=== PATIENT | female | born 1995 | race Caucasian/White ===

== ENCOUNTER 2021-11-05 15:58 | Emergency (ER) | payer MEDICAID, SELFPAY ==
[2021-11-05 16:21] VITALS: BP 113/73; PULSE 97; RESP 18; TEMP 36.7; O2SAT 100; BMI 39.1
--- NOTE | 2021-11-05 16:32 | ED.GENADULT ---
HPI - General Adult General Chief complaint: General Medical Stated complaint: ?Tonsilitis Time Seen by Provider: 11/05/21 16:32 Source: patient Mode of arrival: ambulatory Limitations: no limitations History of Present Illness HPI narrative: 26-year-old female with no known medical history presents to the emergency department with a sore throat, x2 days progressively worsening. Patient tells me she has not been able to drink much due to her progressively worsening sore throat. She tells me it stings and hurts to swallow. She denies fevers, chills, nausea, vomiting, chest pain, shortness of breath, abdominal pain, rhinorrhea, ear pain Onset (ago): day(s) (2) Location: mouth (throat ) Radiation: non-radiation Severity: severe Severity scale (1-10): 10 Quality: burning and other ( stinging ) Pain Consistency: constant Relieving factors: none Exacerbating factors: eating Associated symptoms: denies other symptoms Treatments prior to arrival: none Related Data Previous Rx's Medication Instructions Recorded amoxicillin 500 mg capsule 500 mg PO BID 10 Days #20 cap 11/05/21 prednisone 20 mg tablet 40 mg PO DAILY 5 Days #10 tab 11/05/21 Allergies Allergy/AdvReac Type Severity Reaction Status Date / Time No Known Allergies Allergy Unverified 08/08/20 17:23 Review of Systems Review of Systems: Constitutional : No Weight loss, No Fever, No Chills, No Fatigue, No Malaise ENT/Mouth : + sore throat, No Rhinorrhea Eyes: No Eye Pain, No Swelling, No Redness Cardiovascular : No Chest Pain, No SOB, No Dyspnea on Exertion, No Orthopnea, No Edema, No Palpitations Respiratory : No Cough, No Sputum, No Wheezing Gastrointestinal : No Nausea, No Vomiting, No Diarrhea, No Constipation, No abdominal Pain, No Hematochezia, No Melena Genitourinary : No Dysuria, No Urinary Frequency, No Hematuria, Musculoskeletal : No joint pain, No Myalgias, No Joint Swelling Skin : No Skin Lesions, No rash Neuro : No Weakness, No Numbness, No Dizziness, No Headache Psych : No Anxiety/Panic, No Depression All other systems reviewed and are negative Yes all other systems are reviewed and are negative PMFSH Past Medical History Attestation statement: The following information was validated with the patient. Source: old records reviewed and nursing notes reviewed Social History Social History Advance Directives: No Advance Directives Information Provided: No Physical Exam Vital Signs: Vital Signs: Last Vital Signs Temp 98.1 F 11/05/21 16:21 Pulse 97 11/05/21 16:21 Resp 18 11/05/21 16:21 BP 113/73 11/05/21 16:21 Pulse Ox 100 11/05/21 16:21 BMI result Body Mass Index 39.1 VSS Appearance: Alert.? Oriented X3.? No acute distress.? Head: Normocephalic, atraumatic, no step-offs or deformities Eyes: Pupils equal, round and reactive to light.? ENT: + bilateral tonsils erythematous, edematous with white patchy exudates. Uvula midline. No peritonsillar abscess. Halitosis is noted. No drooling, patient controlling secretions well. No lymphadenopathy. Neck: Normal inspection.? Neck supple.? CVS: Normal heart rate and rhythm.? Pulses normal.? Respiratory: No respiratory distress.? Breath sounds normal.? Abdomen: Soft and nontender.? Skin: Skin warm and dry.? Normal skin color.? Normal skin turgor.? Extremities: No lower extremity edema.? No calf ttp. 5/5 strength to bilateral upper and lower extremities Back: No midline tenderness, no C-spine tenderness, full range of motion, no CVA tenderness bilaterally Neuro: Oriented X 3.? No motor deficit.? No sensory deficit. Course Reevaluation(s) Reevaluation #1: Strep throat test negative. I will still treat for strep throat unless mono comes back positive. Then I will tell patient to not take antibiotics that were sent to her pharmacy. I have sent amoxicillin to the pharmacy, if any thing changes I will call the patient. I plan at this time is to treat this as bacterial pharyngitis unless mono comes back positive. Patient is safe for discharge home. Time: 16:46 Medical Decision Making [facility] Narrative Medical decision making narrative: [id number] This is a 26-year-old female no known medical history presents to the emergency department with 2 days of progressively worsening sore throat. Patient denies upper respiratory symptoms. Denies fevers and chills. Upon physical examination bilateral tonsils erythematous, edematous with white patchy exudates. Uvula midline. No peritonsillar abscess. Halitosis is noted. No drooling, patient controlling secretions well. No lymphadenopathy. Physical examination consistent with strep pharyngitis. Patient denies fevers and chills unlikely that this is mono however Monospot will be done. A strep test will also be done. Lab Data Labs: Lab Results 11/05/21 Range/Units 16:25 S. pyogenes GrpA CONNIE Negative (Negative) Critical Care Time Critical Care Time Critical Care Time: No Discharge Plan Discharge Clinical Impression: Pharyngitis Patient Disposition: Home, Self-Care Instructions: Pharyngitis (ED) Additional Instructions: Take your medications as prescribed. If you were prescribed antibiotics today, it is important that you take your medication to their entirety, do not skip any doses, do not finish them early. Drink plenty of fluids Alternate ibuprofen every 6 hours and Tylenol every 4. [place] test pending if positive you will not need antibiotics. If negative, take your antibiotics as prescribed. Follow-up with your primary care provider this week. Return to the emergency department with new or worsening symptoms. Such as shortness of breath, trouble breathing, drooling, chest pain, fevers, chills, nausea, vomiting, abdominal pain. In case of emergency call 911 Prescriptions: New prednisone 20 mg tablet 40 mg PO DAILY 5 Days Qty: 10 RF: 0 amoxicillin 500 mg capsule 500 mg PO BID 10 Days Qty: 20 RF: 0 Referrals: Suad Saul MD [Primary Care Provider] - 2 days Stand Alone Forms: Work/School Release
[2021-11-05 16:42] LABS: Strep A Nucleic Acid Negative (Negative)
[2021-11-05 17:16] LABS: Monotest Negative (Negative)
== END 2021-11-05 17:39 | disposition home or self-care (01) ==
PROVIDERS: Physician Assistant; Emergency Provider Emergency Medicine; PCP Internal Medicine
DX: J02.9 Acute pharyngitis, unspecified (principal)
CPT/HCPCS: 36415; 86308; 87651; 99283

== ENCOUNTER 2023-07-15 17:12 | Emergency (ER) | payer OTHER, SELFPAY ==
[2023-07-15] VITALS (7 sets, daily range): BP systolic 103–116; BP diastolic 60–75; PULSE 73–90; RESP 18; TEMP 36.4–36.7; O2SAT 97–100; BMI 38.0
--- NOTE | ~2023-07-15 | CT_ITS ---
EXAMINATION: CT ANGIOGRAM OF THE CHEST WITH AND WITHOUT CONTRAST (CT PULMONARY ANGIOGRAM FOR PE) CLINICAL INFORMATION: Reason for Exam CP, dizziness, near syncope, elevated D-dimer COMPARISON: None available. TECHNIQUE: Prior to contrast administration, noncontrast localization images were obtained. Subsequently, multidetector volumetric imaging was performed from the thoracic inlet to below the diaphragms following the administration of 65 mL Omnipaque 350 intravenous contrast. No contrast reaction reported Sagittal, coronal, and MIP oblique sagittal reformatted images were obtained on the CT workstation, uploaded to PACS, and reviewed. This CT examination was performed using dose optimization techniques as appropriate, variously including the following: *Automated exposure control *Adjustment of mA and/or kV according to patient size (this includes techniques or standardized protocols for targeted exams where dose is matched to indication/reason for exam; i.e. extremities or head) *Use of iterative reconstruction technique Total exam dose-length product 298 mGy-cm FINDINGS: QUALITY OF STUDY/CONTRAST BOLUS: Suboptimal. PULMONARY ARTERIES: No central pulmonary emboli. THORACIC AORTA: No aneurysm. LUNG: No focal consolidation, nodules or masses. PLEURA: No pleural effusion or pneumothorax. MEDIASTINUM: Normal heart size. No pericardial effusion. No hilar or mediastinal lymphadenopathy. No evidence of septal bowing or right heart strain. CORONARY ARTERY CALCIFICATION: None visualized on this study. CHEST WALL/AXILLA: No axillary or internal mammary lymphadenopathy. OSSEOUS STRUCTURES: No acute or suspicious osseous abnormality. UPPER ABDOMEN: Unremarkable. No reflux of contrast into the hepatic veins to suggest elevated right heart pressures. CT/CT angio chest PE protocol IMPRESSION: 1. Suboptimal exam. No central pulmonary emboli. 2. No acute abnormalities in the chest. VTE: negative.
--- NOTE | 2023-07-15 17:23 | ECG_ITS ---
Test Reason : pain Blood Pressure : / mmHG Vent. Rate : 081 BPM Atrial Rate : 081 BPM P-R Int : 126 ms QRS Dur : 082 ms QT Int : 376 ms P-R-T Axes : 048 025 021 degrees QTc Int : 436 ms Normal sinus rhythm with sinus arrhythmia Normal ECG No previous ECGs available Referred By: Addi Doan Electronically Signed By:NITIN MYRICK
--- NOTE | 2023-07-15 17:23 | ED.GENADULT ---
HPI - General Adult General Chief complaint: Syncope Stated complaint: Chest pain, SOB,anxiety Time Seen by Provider: 07/15/23 19:13 Source: patient Mode of arrival: ambulatory Limitations: no limitations History of Present Illness HPI narrative: Patient is a 27-year-old female who presents emergency department for evaluation of a syncopal episode. She states while sitting at her client's house today she suddenly felt dizzy and having diffuse anterior chest pain. She stood up and she felt as though her dizziness became significantly worse, reporting tunnel vision, legs feeling tremulous in week. She states that she fell into the chair and she was experiencing severe chest pain with shortness of breath, and anxiety. Denies loss of consciousness She denies any history of this ever having happened in the past. She reports that she had last ate approximately 8 hours prior. She reports otherwise feeling well, without any recent URI symptoms or precipitating symptoms. At this time she continues to endorse chest pain that is described as sharpness in addition to nervousness. She reports a history of chest pain like this in the past but typically it does not reoccur intermittently and that it feels much worse today. Related Data Previous Rx's Medication Instructions Recorded amoxicillin 500 mg capsule 500 mg PO BID 10 days #20 caps 11/05/21 prednisone 20 mg tablet 40 mg PO DAILY 5 days #10 tabs 11/05/21 Allergies Allergy/AdvReac Type Severity Reaction Status Date / Time No Known Allergies Allergy Verified 07/15/23 17:25 Review of Systems Review of Systems: Constitutional : No Weight loss, No Fever, No Chills ENT/Mouth :? No sore throat, No Rhinorrhea Eyes: No Eye Pain, No Swelling Cardiovascular : pos Chest Pain, pos SOB, no Dyspnea on Exertion, No Orthopnea, No Edema, positive Palpitations Respiratory : No Cough, No Sputum Gastrointestinal : pos Nausea, No Vomiting, No Diarrhea, No abdominal Pain, No Hematochezia, No Melena Genitourinary : No Dysuria, No Urinary Frequency Musculoskeletal : No joint pain, No Myalgias, No Joint Swelling Skin : No Skin Lesions, No rash Neuro : Positive Weakness, No Numbness, positive Dizziness, No Headache Psych : Positive Anxiety/Panic, No Depression Heme/Lymph: No Bruising, No Lymphadenopathy Endocrine : No Polyuria, No Polydipsia Yes all other systems are reviewed and are negative [facility] Past Medical History Attestation statement: The following information was validated with the patient. Source: old records reviewed Social History Social History Alcohol intake: unknown Smoked in Last 30 Days: No Use of substances other than those prescribed or required for medical reasons: No Advance Directives: No Advance Directives Information Provided: Yes Patient : No Physical Exam ED Vital Signs: Vital Signs - 24 hr 07/15/23 17:25 07/15/23 19:18 07/15/23 19:19 Temperature 98 F Pulse Rate 78 73 81 Respiratory Rate 18 Blood Pressure 103/75 104/61 116/71 Pulse Oximetry 99 Oxygen Delivery Method Room Air 07/15/23 19:20 07/15/23 22:28 Temperature 97.5 F Pulse Rate 82 83 Respiratory Rate 18 Blood Pressure 105/68 105/70 Pulse Oximetry 97 Oxygen Delivery Method Room Air BMI result Body Mass Index 38.0 Appearance: Alert.?Oriented to person, place and time. No acute distress.?Normal affect. Eyes: Pupils equal, round and reactive to light.? ENT: Pharynx normal.?? Neck: Normal inspection.? Neck supple.?? CVS: Heart sounds normal. Normal heart rate and rhythm.? Pulses normal.?? Respiratory: No respiratory distress.? Lung sounds clear to auscultation bilaterally?? Abdomen: Soft and non-tender. Normoactive bowel sounds. Skin: Skin warm and dry.? Normal skin color.? ?? Extremities: No lower extremity edema.? No calf ttp? Neuro: Moves all extremities spontaneously. Sensation intact bilaterally. CN II-XII intact. No focal neuro deficits. Ambulates with normal steady gait. Course Course Course Narrative: RME- 27 year old female presents for evaluation of shortness of breath. Arrives via EMS for a complaint of seizure. She has a history of anxiety and endorses shortness of breath currently. Patient is awake, alert and oriented. Plan for labs, ekg Reevaluation(s) Reevaluation #1: D dimer is elevated, will obtain CT angio of the chest to exclude pulmonary embolism. Patient updated on plan of care. Time: 20:57 Reevaluation #2: CT angio of the chest suboptimal examination, no central pulmonary embolism, she is without hypoxia, tachypnea, tachycardia, no apparent respiratory distress. She is ambulatory without shortness of breath. At this time she reports resolution of the chest pain. Likely a vasovagal near syncopal episode that occurred today. Currently stable for discharge, outpatient follow-up with primary care provider within 1-3 days. Discussed worrisome signs and symptoms that would warrant re-evaluation in the emergency department. Time: 22:07 Medications Administered Discontinued Medications Generic Name Dose Route Start Last Admin Trade Name Mariya PRN Reason Stop Dose Admin Iohexol 100 ml 07/15/23 21:18 07/15/23 21:19 Iohexol 350 Mg/Ml 100 Ml Infus..Btl IV 07/15/23 21:19 65 ml ONCE ONE Administration Medical Decision Making Medical Decision Making [facility] Narrative: Patient is a 27-year-old female who presents to the emergency department for evaluation of near syncopal episode with chest pain shortness of breath and anxiety. At the time of my examination she is overall well-appearing. She speaking clear full sentences. No apparent distress. The orthostatic vital signs were obtained which are negative. I have reviewed findings from rapid medical examination provider; CBC is without leukocytosis, she has a mild normocytic anemia that does not need any transfusion criteria and she has no concerns of active bleeding. CMP is unremarkable. Troponin <2.7, EKG revealing a normal sinus rhythm without acute ischemic findings, unlikely ACS given low risk factors. Urinalysis is without evidence of infection, urine testing is negative. Although she has no risk factors or lower extremity symptomology, and she is PERC negative, will obtain D-dimer to exclude pulmonary embolism. Low suspicion for any pneumonia, pneumothorax, pulmonary congestion, lung sounds are clear and she is without any distress, hypoxia, or tachypnea. Would defer any XR imaging of the chest at this time. Differential Diagnosis Differential Diagnoses: The differential diagnosis associated with the presentation includes (As noted above) Admission/Observation Consideration of admission/observation: Escalation of care including admission/observation considered (I considered admission for chest pain, see narrative above and course for further detail) Lab Data [facility] Lab Attestation statement: I reviewed the patient's lab results. (See narrative above for further detail) 07/15/23 17:59 07/15/23 17:59 Labs: Lab Results 07/15/23 07/15/23 07/15/23 Range/Units 17:59 17:59 17:59 WBC 6.1 (4.8-10.8) X10*3/uL RBC 3.96 L (4.20-5.50) X10*6/uL Hgb 11.7 L (12.0-16.0) g/dl Hct 35.4 L (37.0-47.0) % MCV 89.4 (80.0-98.0) fL MCH 29.5 (27.0-33.0) pg MCHC 33.1 (31.0-35.0) g/dl RDW 11.9 (11.0-16.0) % Plt Count 270 (160-400) X10*3/uL MPV 10.5 (9.4-12.3) fL Immature Gran % (Auto) 0.2 (0.0-0.4) % Neut % (Auto) 58.1 (45-73) % Lymph % (Auto) 32.6 (20-40) % [place] % (Auto) 7.5 (2-11) % Eos % (Auto) 1.3 (0-4) % Baso % (Auto) 0.3 (0-2) % Lymph # (Auto) 2.0 (1.2-4.9) X10*3/uL [place] # (Auto) 0.5 (0.1-1.2) X10*3/uL Eos # (Auto) 0.1 (0.0-0.4) X10*3/uL Baso # (Auto) 0.0 (0.0-0.2) X10*3/uL Abs Immat Gran (auto) 0.01 (0.00-0.03) X10*3/uL Absolute Neuts (auto) 3.5 (2.0-8.3) x10*3/uL Absolute Nucleated RBC 0.000 (0.0-0.012) X10*3/uL Nucleated RBC % (auto) 0.0 (0.0-0.2) /100WBC D-Dimer High Sensitivty NG/ML Sodium 138 (135-145) mmol/L Potassium 3.5 (3.3-5.1) mmol/L Chloride 107 (96-108) mmol/L Carbon Dioxide 23 (22-29) mmol/L Anion Gap 12 (12-20) BUN 14 (9-16) mg/dL Creatinine 0.69 (0.5-1.4) mg/dL Estim Creat Clear Calc 156.5 Estimated GFR > 60 Random Glucose 94 (60-115) mg/dL Lactic Acid 1.5 (0.5-2.0) mmol/L Calcium 9.8 (8.4-10.2) mg/dL Total Bilirubin 0.3 (0.0-1.0) mg/dL AST 17 (5-31) U/L ALT 12 (0-31) U/L Alkaline Phosphatase 54 (39-117) U/L Troponin I High Sens (<3.5-17.0) ng/L Total Protein 7.5 (6.5-8.0) g/dL Albumin 4.2 (3.5-5.0) g/dL Lipase 31 (8-78) U/L Urine Color Urine Appearance Urine pH (5.0-9.0) Ur Specific [place] (1.005-1.025) Urine Protein (Neg-Trace) mg/dL Urine Glucose (UA) (Negative) mg/dL Urine Ketones (Negative) mg/dL Urine Blood (Negative) Urine Nitrite (Negative) Ur Leukocyte Esterase (Negative) Urine RBC (0-2) /HPF Urine WBC (0-5) /HPF Ur Squamous Epith Cells (0-2) /HPF Urine Bacteria (None Seen) Hyaline Casts (0-2) /LPF Urine Test (NEGATIVE) 07/15/23 07/15/23 07/15/23 Range/Units 18:00 19:30 19:30 WBC (4.8-10.8) X10*3/uL RBC (4.20-5.50) X10*6/uL Hgb (12.0-16.0) g/dl Hct (37.0-47.0) % MCV (80.0-98.0) fL MCH (27.0-33.0) pg MCHC (31.0-35.0) g/dl RDW (11.0-16.0) % Plt Count (160-400) X10*3/uL MPV (9.4-12.3) fL Immature Gran % (Auto) (0.0-0.4) % Neut % (Auto) (45-73) % Lymph % (Auto) (20-40) % [place] % (Auto) (2-11) % Eos % (Auto) (0-4) % Baso % (Auto) (0-2) % Lymph # (Auto) (1.2-4.9) X10*3/uL [place] # (Auto) (0.1-1.2) X10*3/uL Eos # (Auto) (0.0-0.4) X10*3/uL Baso # (Auto) (0.0-0.2) X10*3/uL Abs Immat Gran (auto) (0.00-0.03) X10*3/uL Absolute Neuts (auto) (2.0-8.3) x10*3/uL Absolute Nucleated RBC (0.0-0.012) X10*3/uL Nucleated RBC % (auto) (0.0-0.2) /100WBC D-Dimer High Sensitivty NG/ML Sodium (135-145) mmol/L Potassium (3.3-5.1) mmol/L Chloride (96-108) mmol/L Carbon Dioxide (22-29) mmol/L Anion Gap (12-20) BUN (9-16) mg/dL Creatinine (0.5-1.4) mg/dL Estim Creat Clear Calc Estimated GFR Random Glucose (60-115) mg/dL Lactic Acid (0.5-2.0) mmol/L Calcium (8.4-10.2) mg/dL Total Bilirubin (0.0-1.0) mg/dL AST (5-31) U/L ALT (0-31) U/L Alkaline Phosphatase (39-117) U/L Troponin I High Sens < 2.7 (<3.5-17.0) ng/L Total Protein (6.5-8.0) g/dL Albumin (3.5-5.0) g/dL Lipase (8-78) U/L Urine Color Yellow Urine Appearance Clear Urine pH 7.0 (5.0-9.0) Ur Specific [place] 1.010 (1.005-1.025) Urine Protein Negative (Neg-Trace) mg/dL Urine Glucose (UA) Negative (Negative) mg/dL Urine Ketones Negative (Negative) mg/dL Urine Blood Negative (Negative) Urine Nitrite Negative (Negative) Ur Leukocyte Esterase Negative (Negative) Urine RBC 0-2 (0-2) /HPF Urine WBC 0-5 (0-5) /HPF Ur Squamous Epith Cells 3-5 (0-2) /HPF Urine Bacteria Trace (None Seen) Hyaline Casts 0-2 (0-2) /LPF Urine Test NEGATIVE (NEGATIVE) 07/15/23 Range/Units 20:10 WBC (4.8-10.8) X10*3/uL RBC (4.20-5.50) X10*6/uL Hgb (12.0-16.0) g/dl Hct (37.0-47.0) % MCV (80.0-98.0) fL MCH (27.0-33.0) pg MCHC (31.0-35.0) g/dl RDW (11.0-16.0) % Plt Count (160-400) X10*3/uL MPV (9.4-12.3) fL Immature Gran % (Auto) (0.0-0.4) % Neut % (Auto) (45-73) % Lymph % (Auto) (20-40) % [place] % (Auto) (2-11) % Eos % (Auto) (0-4) % Baso % (Auto) (0-2) % Lymph # (Auto) (1.2-4.9) X10*3/uL [place] # (Auto) (0.1-1.2) X10*3/uL Eos # (Auto) (0.0-0.4) X10*3/uL Baso # (Auto) (0.0-0.2) X10*3/uL Abs Immat Gran (auto) (0.00-0.03) X10*3/uL Absolute Neuts (auto) (2.0-8.3) x10*3/uL Absolute Nucleated RBC (0.0-0.012) X10*3/uL Nucleated RBC % (auto) (0.0-0.2) /100WBC D-Dimer High Sensitivty 418 NG/ML Sodium (135-145) mmol/L Potassium (3.3-5.1) mmol/L Chloride (96-108) mmol/L Carbon Dioxide (22-29) mmol/L Anion Gap (12-20) BUN (9-16) mg/dL Creatinine (0.5-1.4) mg/dL Estim Creat Clear Calc Estimated GFR Random Glucose (60-115) mg/dL Lactic Acid (0.5-2.0) mmol/L Calcium (8.4-10.2) mg/dL Total Bilirubin (0.0-1.0) mg/dL AST (5-31) U/L ALT (0-31) U/L Alkaline Phosphatase (39-117) U/L Troponin I High Sens (<3.5-17.0) ng/L Total Protein (6.5-8.0) g/dL Albumin (3.5-5.0) g/dL Lipase (8-78) U/L Urine Color Urine Appearance Urine pH (5.0-9.0) Ur Specific [place] (1.005-1.025) Urine Protein (Neg-Trace) mg/dL Urine Glucose (UA) (Negative) mg/dL Urine Ketones (Negative) mg/dL Urine Blood (Negative) Urine Nitrite (Negative) Ur Leukocyte Esterase (Negative) Urine RBC (0-2) /HPF Urine WBC (0-5) /HPF Ur Squamous Epith Cells (0-2) /HPF Urine Bacteria (None Seen) Hyaline Casts (0-2) /LPF Urine Test (NEGATIVE) Independent Interpretation I performed an independent interpretation of an: EKG Interpretation: Rate: 81 Rhythm:? Normal sinus rhythm with arrhythmia [place]:? Normal Normal P waves.? Normal JOSEFINA.?? Normal QRS complex.?? ST T wave :??No ST elevation, no ST depression, no T-wave inversion qTC: 436 prior studies:? None available for review The study has been interpreted contemporaneously by me. Radiology Impression Discussion of test interpretation with radiology: I have reviewed the radiologist's reading. Radiologist Impression: CT/CT angio chest PE protocol IMPRESSION: 1.? Suboptimal exam. No central pulmonary emboli. 2.? No acute abnormalities in the chest. Discharge Plan Discharge Clinical Impression: Vasovagal syncope Patient Disposition: Home, Self-Care Instructions: Near Syncope (ED) Additional Instructions: Follow-up with primary care provider within 1-3 days. Return back to emergency department any new or worsening symptoms or concerns. Prescriptions: No Action prednisone 20 mg tablet 40 mg PO DAILY 5 Days Qty: 10 0RF amoxicillin 500 mg capsule 500 mg PO BID 10 Days Qty: 20 0RF Referrals: Physician,Unknown J [Primary Care Provider] -
[2023-07-15 18:04] LABS: MANUAL DIFF FLAG NO
[2023-07-15 18:19] LABS: Lactic Acid 1.5 mmol/L (0.5-2.0)
[2023-07-15 18:23] LABS: Alanine Aminotransferase 12 U/L (0-31); Albumin Level 4.2 g/dL (3.5-5.0); Alkaline Phosphatase 54 U/L (39-117); Anion Gap 12 (12-20); Aspartate Amino Transferase 17 U/L (5-31); Bilirubin Total 0.3 mg/dL (0.0-1.0); Blood Urea Nitrogen 14 mg/dL (9-16); Calcium 9.8 mg/dL (8.4-10.2); Carbon Dioxide 23 mmol/L (22-29); Chloride 107 mmol/L (96-108); Creatinine Clr Calc Pharmacy 156.5; Estimated Glomerular Filt Rate > 60; Glucose Random 94 mg/dL (60-115); Lipase 31 U/L (8-78); Potassium 3.5 mmol/L (3.3-5.1); Sodium 138 mmol/L (135-145); Total Protein 7.5 g/dL (6.5-8.0)
[2023-07-15 18:37] LABS: Troponin-I High Sensitivity < 2.7 ng/L (<3.5-17.0)
[2023-07-15 18:41] LABS: Basophils Percent Auto 0.3 % (0-2); Eosinophils Absolute Auto 0.1 X10*3/uL (0.0-0.4); Eosinophils Percent Auto 1.3 % (0-4); Hematocrit 35.4 % (37.0-47.0); Hemoglobin 11.7 g/dl (12.0-16.0); Imm Gran Abs Auto 0.01 X10*3/uL (0.00-0.03); Imm Gran Pct Auto 0.2 % (0.0-0.4); Lymphocytes Percent Auto 32.6 % (20-40); Mean Corpuscular HGB Conc 33.1 g/dl (31.0-35.0); Mean Corpuscular Hemoglobin 29.5 pg (27.0-33.0); Mean Corpuscular Volume 89.4 fL (80.0-98.0); Mean Platelet Volume 10.5 fL (9.4-12.3); Monocytes Absolute Auto 0.5 X10*3/uL (0.1-1.2); Monocytes Percent Auto 7.5 % (2-11); Neutrophils Absolute Auto 3.5 x10*3/uL (2.0-8.3); Neutrophils Percent Auto 58.1 % (45-73); Platelet Count 270 X10*3/uL (160-400); Red Blood Count 3.96 X10*6/uL (4.20-5.50); Red Cell Distribution Width 11.9 % (11.0-16.0); White Blood Count 6.1 X10*3/uL (4.8-10.8)
--- NOTE | 2023-07-15 19:20 | PC.NURSE ---
pt placed into bed 11 from waiting room. changed into hospital gown, placed on pipe bowls paint trimmer orthostatic vitals being obtained. pt waiting to be seen by ED provider. speaking clear full sentences in no apparent distress. lucía wright within reach.
[2023-07-15 19:37] LABS: Urine Pregnancy NEGATIVE (NEGATIVE)
[2023-07-15 19:38] LABS: Appearance Urine Clear; Color Urine Yellow; Glucose Urine UA Negative (Negative); Leukocyte Esterase Urine Negative (Negative); Nitrite Urine Negative (Negative); UPreg QC Valid YES; Urine Blood Negative (Negative); Urine Ketones Negative (Negative); Urine Protein Negative (Neg-Trace)
[2023-07-15 19:40] LABS: Bacteria Urine Trace (None Seen); Hyaline Casts Urine 0-2 /LPF (0-2); RBC Urine 0-2 /HPF (0-2); WBC Urine 0-5 /HPF (0-5)
[2023-07-15 20:25] LABS: D Dimer High Sensitivity 418 NG/ML
[2023-07-15] MEDS: iohexoL 350 MG/ML 100 ML INFUS..BTL IV (21:19)
--- NOTE | 2023-07-15 21:21 | PC.NURSE ---
pt returned to room from CT scan. ambulates with steady gait.
== END 2023-07-15 23:16 | disposition home or self-care (01) ==
PROVIDERS: Nurse Practitioner Family; Physician Assistant; Emergency Provider Emergency Medicine
DX: R55 Syncope and collapse (principal); R06.02 Shortness of breath; Z79.899 Other long term (current) drug therapy
CPT/HCPCS: 36415; 71275; 80053; 81001; 81025; 83605; 83690; 84484; 85025; 85379; 93005; 99284; 99285; Q9967

== ENCOUNTER 2023-11-02 17:38 | Emergency (ER) | payer OTHER, SELFPAY ==
--- NOTE | ~2023-11-02 | XR_ITS ---
EXAMINATION: XR CHEST CLINICAL INFORMATION: Cough. Covid positive. COMPARISON: None available. TECHNIQUE: Frontal view of the chest was obtained. FINDINGS: No significant abnormality is noted involving the heart, lungs, mediastinum, bony thorax or soft tissues. XR/XR chest 1V IMPRESSION: Unremarkable examination.
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
[2023-11-02 17:54] VITALS: BP 107/78; PULSE 89; RESP 18; TEMP 36.6; O2SAT 100; BMI 29.2
--- OUTSIDE RECORDS SUMMARY | 2023-11-02 18:03 | XMS_ITS | Continuity of Care Document ---
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 Patient should only receive a total of 650mg of Acetaminophen every 4 hours., Refills 0, Maintenance, Pain , Mild, 0... Start Date: 12/21/20 Status: Ordered Acetaminophen Tablet 650 mg, Tablet, By Mouth, Every 4 hours, PRN for Pain , Mild, (1-3), may give 325mg per patient preference and re-dose with 325mg within 4 hours, if needed. Patient should only receive a total of 650mg of Acetaminophen every 4 hours., Routine, 12/19... Start Date: 12/19/20 Stop Date: 12/21/20 Status: Discontinued Docusate Sodium Capsule 100 mg, 1, capsule, By Mouth, 2 times a day, Refills 0, Maintenance, 12/21/20 10:08:00 EST, Partialfill upon patient request if the prescription is for a schedule II opioid drug. Start Date: 12/21/20 Status: Ordered ibuprofen 800 mg oral tablet 800 mg, 1, tablet, By Mouth, Every 8 hours, PRN, (4-6), may give 400mg per patient preference and re-dose with 400mg within 8 hours if needed. Patient should only receive a total of 800mg of Ibuprofen every 8 hours., Refills 0, Maintenance, Pain , M... Start Date: 12/21/20 Status: Ordered Ibuprofen Tablet 800 mg, Tablet, By Mouth, Every 8 hours, PRN for Pain , Moderate, (4-6), may give 400mg per patientpreference and re-dose with 400mg within 8 hours if needed. Patient should only receive a total of 800mg of Ibuprofen every 8 hours., Routine, ... Start Date: 12/19/20 Stop Date: 12/21/20 Status: Discontinued Problem List Condition Effective Dates Status Health Status Inform ant COVID-19(Confirmed) Active Vital Signs Most recent to oldest [Reference Range]: 1 2 3 4 Height 169 cm (12/21/20 9:34 AM) 169 cm (12/21/20 12:30 AM) 169 cm (12/20/20 10:34 AM) Weight 125 kg (12/17/20 9:21 PM) 125 kg (12/17/20 9:19 PM) Oxygen Saturation [94-100 %] 99 % (12/21/20 12:30 AM) 100 % (12/20/20 4:30 PM) 100 % (12/20/20 10:34 AM) Pulse Rate [55-90 bpm] 96 bpm *H* (12/21/20 12:30 AM) 106 bpm *H* (12/17/20 9:21 PM) Body Mass Index [18.5-24.99] 43.77 *>HHI* (12/17/20 9:21 PM) Blood Pressure [90-138/55-84 mm Hg] 108/77mm Hg (12/21/20 9:00 AM) 118/73mm Hg (12/21/20 12:30 AM) 122/79mm Hg (12/20/20 4:30 PM) Respiratory Rate [16-30 br/min] 16 br/min (12/21/20 1:09 AM) 18 br/min (12/21/20 12:30 AM) 18 br/min (12/20/20 9:00 PM) 18 br/min (12/20/20 9:00 PM) Temperature [96.8-100.4 DegF] 97.7 DegF (12/21/20 9:00 AM) 98.6 DegF (12/21/20 12:30 AM) 97.7 DegF (12/20/20 4:30 PM) Mode of Delivery (Oxygen) Room air (12/21/20 12:30 AM) Room air (12/18/20 10:51 AM) Room air (12/17/20 9:21 PM) Blood pressure sites Arm, right (12/21/20 12:30 AM) Arm, right (12/19/20 8:50 AM) Arm, right (12/17/20 9:21 PM) Temperature Route Axillary (12/21/20 9:00 AM) Oral (12/21/20 12:30 AM) Oral (12/20/20 4:30 PM) Dry Weight 125 kg (12/17/20 9:21 PM)
[2023-11-02 18:11] LABS: COVID-19 Test Positive (Negative); IDNOW Serial# 9DB6401D
== END 2023-11-02 19:51 | disposition home or self-care (01) ==
PROVIDERS: Physician Assistant; Emergency Provider Emergency Medicine; PCP Nurse Practitioner Family
DX: U07.1 COVID-19 (principal); R05.9 Cough, unspecified; M79.10 Myalgia, unspecified site
CPT/HCPCS: 71045; 87635; 99282; 99283

== ENCOUNTER 2024-06-26 11:03 | Emergency (ER) | payer OTHER, SELFPAY ==
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
[2024-06-26 11:54] VITALS: BP 102/69; PULSE 65; RESP 16; TEMP 36.6; O2SAT 97; BMI 35.4
--- NOTE | 2024-06-26 12:03 | ECG_ITS ---
Test Reason : dizziness Blood Pressure : / mmHG Vent. Rate : 064 BPM Atrial Rate : 064 BPM P-R Int : 120 ms QRS Dur : 082 ms QT Int : 388 ms P-R-T Axes : 040 026 018 degrees QTc Int : 400 ms Normal sinus rhythm Normal ECG When compared with ECG of 15-JUL-2023 17:46, No significant change was found Referred By: Jaya Hrendon Electronically Signed By:CHESTER DAVILA MD
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
[2024-06-26 12:54] LABS: MANUAL DIFF FLAG NO
[2024-06-26 12:56] LABS: Basophils Percent Auto 0.7 % (0-2); Eosinophils Absolute Auto 0.1 X10*3/uL (0.0-0.4); Eosinophils Percent Auto 1.7 % (0-4); Hematocrit 39.5 % (37.0-47.0); Hemoglobin 12.9 g/dl (12.0-16.0); Imm Gran Abs Auto 0.02 X10*3/uL (0.00-0.03); Imm Gran Pct Auto 0.3 % (0.0-0.4); Lymphocytes Absolute Auto 2.2 X10*3/uL (1.2-4.9); Lymphocytes Percent Auto 37.3 % (20-40); Mean Corpuscular HGB Conc 32.7 g/dl (31.0-35.0); Mean Corpuscular Hemoglobin 29.5 pg (27.0-33.0); Mean Corpuscular Volume 90.2 fL (80.0-98.0); Mean Platelet Volume 10.3 fL (9.4-12.3); Monocytes Absolute Auto 0.5 X10*3/uL (0.1-1.2); Monocytes Percent Auto 7.9 % (2-11); Neutrophils Absolute Auto 3.1 x10*3/uL (2.0-8.3); Neutrophils Percent Auto 52.1 % (45-73); Platelet Count 265 X10*3/uL (160-400); Red Blood Count 4.38 X10*6/uL (4.20-5.50); Red Cell Distribution Width 11.7 % (11.0-16.0)
[2024-06-26 12:58] LABS: UPreg QC Valid YES; Urine Pregnancy NEGATIVE (NEGATIVE)
[2024-06-26 13:02] LABS: INTERNATIONAL NORM RATIO 0.9 (0.9-1.1); Prothrombin Time 10.5 SEC (11.1-13.3)
[2024-06-26 13:04] LABS: Appearance Urine Turbid; Color Urine Yellow; Glucose Urine UA Negative (Negative); Leukocyte Esterase Urine Small (1+) (Negative); Nitrite Urine Negative (Negative); Specific Gravity - Urine 1.025 (1.005-1.025); UMIC TRIGGER UACC YES; Urine Blood Negative (Negative); Urine Ketones Negative (Negative); Urine Protein Trace mg/dL (Neg-Trace)
[2024-06-26 13:05] LABS: Partial Thromboplastin Time 24.5 SEC (26.0-36.8)
[2024-06-26 13:15] LABS: Bacteria Urine 1+ (None Seen); Hyaline Casts Urine 0-2 /LPF (0-2); Other Crystals Urine Present; RBC Urine 0-2 /HPF (0-2); UACC Culture Trigger YES; WBC Urine 0-5 /HPF (0-5)
[2024-06-26 13:19] LABS: Alanine Aminotransferase 15 U/L (0-31); Albumin Level 4.1 g/dL (3.5-5.0); Alkaline Phosphatase 51 U/L (39-117); Anion Gap 7 (12-20); Aspartate Amino Transferase 15 U/L (5-31); Bilirubin Total 0.2 mg/dL (0.0-1.0); Blood Urea Nitrogen 11 mg/dL (9-16); Calcium 9.3 mg/dL (8.4-10.2); Carbon Dioxide 28 mmol/L (22-29); Chloride 108 mmol/L (96-108); Creatinine Clr Calc Pharmacy 151.6; Estimated Glomerular Filt Rate > 60; Glucose Random 90 mg/dL (60-115); Potassium 4.1 mmol/L (3.3-5.1); Sodium 139 mmol/L (135-145); Total Protein 7.3 g/dL (6.5-8.0)
[2024-06-26 13:24] LABS: HCG Quantitative < 2 mIU/mL; Troponin-I High Sensitivity < 2.7 ng/L (<3.5-17.0)
== END 2024-06-26 23:06 | disposition left against medical advice (07) ==
PROVIDERS: Physician Assistant; Emergency Provider Emergency Medicine; PCP Nurse Practitioner Family
DX: R42 Dizziness and giddiness (principal); R11.0 Nausea; M25.512 Pain in left shoulder; M25.511 Pain in right shoulder; M54.2 Cervicalgia; R51.9 Headache, unspecified; Z79.899 Other long term (current) drug therapy
CPT/HCPCS: 36415; 70450; 70486; 72125; 73030; 80053; 81001; 81003; 81025; 84484; 84702; 85025; 85610; 85730; 87086; 93005; 99283; 99284

== ENCOUNTER → 2024-06-26 12:03 | Outpatient (BNV) | payer OTHER, SELFPAY | PROVIDERS: PCP Nurse Practitioner Family; Visit Provider Internal Medicine Cardiovascular Disease | DX: R42 Dizziness and giddiness (principal) | CPT/HCPCS: 93010 ==

== ENCOUNTER 2025-03-28 23:51 | Emergency (ER) | payer MEDICAID, SELFPAY ==
[2025-03-28 23:54] VITALS: BP 110/64; PULSE 63; RESP 16; TEMP 36.4; O2SAT 99; BMI 31.1
--- NOTE | 2025-03-29 01:19 | ED.HA ---
HPI - Headache General Chief Complaint: Headache Stated Complaint: Headache Time Seen by Provider: 03/29/25 01:19 History of Present Illness ED Provider: Rimma ANDERS Narrative: The patient is a 29-year-old woman with no significant past medical history who comes to the emergency room for evaluation of a headache that started about 24 hours ago. The patient says that the headache came on gradually. 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 She went home after her shift and she went to sleep but when she woke up this morning the headache was still present as if she had not slept at all. Despite the headache she went to work as a hair designer again. She used ibuprofen throughout the day without significant improvement. At the end of her shift she went home and was encouraged to come to the emergency room for evaluation. the patient drove herself to the hospital. The patient says that she has had headaches in the past and thinks she has had at least one headache that was quite similar to her current headache. She says she came to the emergency room here at that time but it was many years ago and she does not remember much about it.. She has had no fever, sweats, chills. No sore throat. No cough or sputum. She has had some nausea but no vomiting. She may be slightly photophobic. The patient is a single mother of a 4-year-old child. Although she works as a hair designer about 1 month ago she had to move into a correction because she had nowhere else to live. She says that her mother had kicked her out of her house previously. She finds it stressful being a single mother. She is quite certain she is not . She says that she just finished her period. She also says that she took a home test earlier today that was negative. She says that she has a regular sexual partner/boyfriend. She does not want to get . They are using the pull out method. Related Data Previous Rx's ?Medication ?Instructions ?Recorded amoxicillin 500 mg capsule 500 mg PO BID 10 days #20 caps 11/05/21 prednisone 20 mg tablet 40 mg (2 x 20 mg) PO DAILY 5 days 11/05/21 #10 tabs Allergies Allergy/AdvReac Type Severity Reaction Status Date / Time No Known Allergies Allergy Verified 03/28/25 23:56 Review of Systems Review of Systems: Yes all other systems are reviewed and are negative [facility] Social History Social History Alcohol intake: unknown Smoked in Last 30 Days: No Use of substances other than those prescribed or required for medical reasons: No Advance Directives: No Do you have a plan to hurt others: No Plan Physical Exam Vital Signs: Vital Signs: Last Vital Signs Temp 97.8 F 03/29/25 02:30 Pulse 59 03/29/25 02:30 Resp 16 03/29/25 02:30 BP 98/61 03/29/25 02:30 Pulse Ox 99 03/29/25 02:30 O2 Del Method Room Air 03/29/25 02:30 BMI result Body Mass Index 31.1 Const: Other: The patient is awake, alert, pleasant, cooperative. She looks mildly uncomfortable but not acutely toxic. Orientation/consciousness: patient oriented x3 HEENT: Other: Face is symmetrical, mucous membranes moist, the posterior pharynx is normal. Eyes: Other: Pupils are round, equal, and reactive to light, extraocular movements are intact, conjunctivae are clear, funduscopic exam is unremarkable Neck: Other: the neck is entirely supple. No adenopathy. Neck: Yes no meningeal signs Resp: Effort & Inspection: normal respiratory effort Auscultation: clear to auscultation bilaterally Cardio: Rate: regular rate Rhythm: regular rhythm Heart sounds: S1 normal heart sound present and S2 normal heart sound present Skin: Other: Skin is dry and unremarkable General skin exam: no rashes or lesions noted Neuro: General: patient oriented x3, gait normal, tone normal, moves all extremities, no meningeal signs, no focal motor deficits and CN's II-XI intact bilaterally Extrem: Other: no peripheral edema Medications Administered Discontinued Medications Generic Name Dose Route Start Last Admin Trade Name Maynorq PRN Reason Stop Dose Admin Acetaminophen 975 mg 03/29/25 01:28 03/29/25 01:49 Acetaminophen 325 Mg Tablet PO 03/29/25 01:29 975 mg ONCE ONE Administration Ketorolac Tromethamine 30 mg 03/29/25 01:28 03/29/25 01:48 Ketorolac Tromethamine 30 Mg/Ml Vial IM 03/29/25 01:29 30 mg ONCE ONE Administration Prochlorperazine Edisylate 10 mg 03/29/25 01:28 03/29/25 01:49 Prochlorperazine Edisylate 10 Mg/2 Ml Vial IM 03/29/25 01:29 10 mg ONCE ONE Administration Medical Decision Making Medical Decision Making [facility] Narrative: the patient is a very pleasant 29-year-old who presents with a 24 hour headache which started gradually and is somewhat similar to previous headaches. No fever or infectious symptoms. Vital signs are unremarkable. She looks quite well. I think this is probably a stress headache or a migraine headache. She was given IM ketorolac and IM prochlorperazine. She was observed. She felt considerably better. She will be discharged to follow up with the regular doctor. Discharge Plan Discharge Clinical Impression: Headache Patient Disposition: Home, Self-Care Additional Instructions: Your headache may have been a migraine headache. Please try to get some rest tonight and take it easy tomorrow. Drink lot of fluids. Make a follow up appointment with your regular doctor soon to discuss this further. Return to the emergency room if you are significantly worse. Prescriptions: No Action prednisone 20 mg tablet 40 mg PO DAILY 5 Days Qty: 10 0RF amoxicillin 500 mg capsule 500 mg PO BID 10 Days Qty: 20 0RF Referrals: [facility] NANNETTE Oh [Provider Group] Interventions: ED Discharge Assessment Last Done: 03/29/25 02:30 Discharge Date/Time: 03/29/25 02:30 Print Language: Brazilian
[2025-03-29] MEDS: Ketorolac Tromethamine 30 MG/ML VIAL IM (01:48)
[2025-03-29] MEDS: Acetaminophen 325 MG TABLET 975 MG PO (01:49)
[2025-03-29] MEDS: Prochlorperazine Edisylate 10 MG/2 ML VIAL IM (01:49)
[2025-03-29 02:13] VITALS: BP 98/61; PULSE 59; RESP 16; TEMP 36.6; O2SAT 99
[2025-03-29 02:30] VITALS: BP 98/61; PULSE 59; RESP 16; TEMP 36.6; O2SAT 99
== END 2025-03-29 02:30 | disposition home or self-care (01) ==
PROVIDERS: Emergency Provider Emergency Medicine
DX: R51.9 Headache, unspecified (principal)
CPT/HCPCS: 96372; 99284; J0737; J1885